=== PATIENT | male | born 1990 | race Caucasian/White ===

== ENCOUNTER 2017-04-20 09:57 | Emergency (ER) | payer OTHER ==
[2017-04-20 10:02] VITALS: BP 133/71; PULSE 77; TEMP 98.4; BMI 30.4
[2017-04-20] MEDS ORDERED: BACITRACIN 15 GM TUBE TOPICAL OINTMENT ONE (10:26)
--- NOTE | 2017-04-20 10:35 | PDOC ---
History of Present Illness - General Chief Complaint: Rash Stated Complaint: HEADACHES Time Seen by Provider: 04/20/17 10:12 History Source: Patient Exam Limitations: No Limitations - History of Present Illness Initial Comments: 04/20/17 10:29 27 year old male with history of HSV presents to the ED with vesicular rash to his left suprapubic area for the past 5 days. Patient states initially was treating it with homeopathic remedies with no improvement. Patient states has had episodes occurring every 2 years with his first episode approximately 10 years ago. Patient states since area do not improve and still has vesicles to the center he decided come to the ER. Patient denies fever, chills, penile or testicular involvement, enlarged lymph nodes. Past History - Travel Traveled outside of the country in the last 30 days: No - Past Medical History Allergies/Adverse Reactions: Allergies Allergy/AdvReac Type Severity Reaction Status Date / Time No Known Allergies Allergy Verified 04/20/17 10:02 Home Medications: Ambulatory Orders Acyclovir [Zovirax -] 400 mg PO TID #21 tablet 07/03/14 Bacitracin - [Bacitracin Topical Ointment -] 1 applic TP TID 07/03/14 Cefadroxil Hydrate [Cefadroxil] 500 mg PO DAILY 07/03/14 Sulfamethoxazole/Trimethoprim [Bactrim Ds -] 1 tab PO BID #13 tablet 07/03/14 Valacyclovir HCl [Valtrex] 1,000 mg PO DAILY #5 tablet 04/20/17 COPD: No Other medical history: shingles - Suicide/Smoking/Psychosocial Hx Smoking History: Never smoked Hx Alcohol Use: Yes Substance Use Type: Alcohol Patient Lives Alone: No Lives with/in: parents Review of Systems - Review of Systems Able to Perform ROS?: Yes Constitutional: No: Symptoms Reported Integumentary: Yes: Rash *Physical Exam - Vital Signs Last Vital Signs Temp Pulse Resp BP Pulse Ox 98.4 F 77 18 133/71 99 04/20/17 09:59 04/20/17 09:59 04/20/17 09:59 04/20/17 09:59 04/20/17 09:59 - Physical Exam General Appearance: Yes: Nourished, Appropriately Dressed. No: Apparent Distress Neck: negative: Lymphadenopathy (R), Lymphadenopathy (L) Male Genitalia: positive: normal genitalia. negative: discharge, testicular tenderness Lymphatic: negative: Adenopathy Integumentary: positive: Rash (noted crusted patch to left suprapubic region with vesicles to Center) Neurologic: positive: Motor Strength 5/5 (ambulatory) Medical Decision Making - Medical Decision Making 04/20/17 10:35 Patient with recurrent herpes simplex virus to the left suprapubic area explained to patient that he should not be working out in the gym and needs to use a nonstick dressing and wear cotton underpinnings. Although symptoms began approximately one week ago patient still has newly erupting vesicles to Center and will be treated with Valtrex. Patient also be recommended to follow-up with his PCP and ID as requested *DC/Admit/Observation/Transfer Diagnosis at time of Disposition: Recurrent herpes simplex - Discharge Dispostion Disposition: HOME Condition at time of disposition: Good - Prescriptions Prescriptions: Valacyclovir HCl [Valtrex] 1,000 mg PO DAILY #5 tablet - Referrals Referrals: STAFF,NOT ON [Primary Care Provider] - Alyson Caldera MD [Staff Physician] - - Patient Instructions Printed Discharge Instructions: DI for Genital Herpes Additional Instructions: At this time I recommend keeping area clean and dry and avoiding working out to promote healing. I also recommend taking the medication as prescribed until completed. I have enclosed contact information for infectious disease specialist - Post Discharge Activity
== END 2017-04-20 10:54 | disposition home or self-care (01) ==
LOC: JERFT 09:57
DX: B00.9 Herpesviral infection, unspecified (principal)
CPT/HCPCS: 99281-25

== ENCOUNTER 2017-10-12 10:13 | Emergency (ER) | payer OTHER ==
[2017-10-12 10:17] VITALS: BP 131/85; PULSE 62; TEMP 98; BMI 29.6
--- NOTE | 2017-10-12 11:28 | PDOC ---
History of Present Illness - General Chief Complaint: Rash Stated Complaint: ITCHY - History of Present Illness Initial Comments: 27-year-old male without comorbidities and past medical history significant for herpes outbreak presents for evaluation of a tender nodule about his mons pubis for 2 days. After shaving he noticed it. 10/12/17 11:23 Past History - Past Medical History Allergies/Adverse Reactions: Allergies Allergy/AdvReac Type Severity Reaction Status Date / Time No Known Allergies Allergy Verified 10/12/17 10:13 Home Medications: Ambulatory Orders Valacyclovir HCl [Valtrex] 1,000 mg PO TID #21 tablet 10/12/17 COPD: No DVT: No - Suicide/Smoking/Psychosocial Hx Smoking History: Never smoked Information on smoking cessation initiated: No Hx Alcohol Use: Yes Drug/Substance Use Hx: No Substance Use Type: Alcohol Review of Systems - Review of Systems Integumentary: Yes: See HPI, Lesions All Other Systems: Reviewed and Negative *Physical Exam - Vital Signs Last Vital Signs Temp Pulse Resp BP Pulse Ox 98.0 F 62 18 131/85 100 10/12/17 10:15 10/12/17 10:15 10/12/17 10:15 10/12/17 10:15 10/12/17 10:15 - Physical Exam Comments: There is a mildly erythematous nonfluctuant papule at the proximal aspects of the mons pubis, or no other lesions noted 10/12/17 11:24 Medical Decision Making - Medical Decision Making Patient states he feels like this may be the start of his outbreak he is requesting Valtrex. I feel this is folliculitis. I will give him a prescription for Valtrex for coverage 10/12/17 11:25 *DC/Admit/Observation/Transfer Diagnosis at time of Disposition: Folliculitis - Discharge Dispostion Disposition: HOME Condition at time of disposition: Stable Decision to Admit order: No - Referrals Referrals: Shekhar Mclean [Non Staff, Medical] - - Patient Instructions Printed Discharge Instructions: Genital Herpes Additional Instructions: Take the medication if you feel you're getting an outbreak follow-up with the primary care provider in the next 1-2 days for further evaluation and treatment options. Return to the emergency room should her symptoms worsen or go unresolved. - Post Discharge Activity
== END 2017-10-12 11:31 | disposition home or self-care (01) ==
LOC: JERFT 10:13
DX: L73.8 Other specified follicular disorders (principal); B00.89 Other herpesviral infection
CPT/HCPCS: 99281-25

== ENCOUNTER 2017-11-21 10:47 | Emergency (ER) | payer OTHER ==
[2017-11-21 10:51] VITALS: BP 118/80; PULSE 70; TEMP 98.5; BMI 31.9
--- NOTE | 2017-11-21 11:26 | PDOC ---
History of Present Illness - General Chief Complaint: Rash Stated Complaint: CHECK UP Time Seen by Provider: 11/21/17 11:16 History Source: Patient Exam Limitations: No Limitations - History of Present Illness Initial Comments: 11/21/17 11:27 27 yr male with rash to lower abdomen, states he has had herpes simplex outbreak for 10 yrs, states a lot of stress recently and now has rash. no other medical history no allergies, no meds. no fever. Past History - Past Medical History Allergies/Adverse Reactions: Allergies Allergy/AdvReac Type Severity Reaction Status Date / Time No Known Allergies Allergy Verified 11/21/17 10:51 Home Medications: Ambulatory Orders Valacyclovir HCl [Valtrex -] 500 mg PO BID #6 tablet 11/21/17 Valacyclovir HCl [Valtrex] 1,000 mg PO TID #21 tablet 11/21/17 COPD: No DVT: No - Suicide/Smoking/Psychosocial Hx Smoking History: Never smoked Hx Alcohol Use: Yes Drug/Substance Use Hx: No Substance Use Type: Alcohol Review of Systems - Review of Systems Able to Perform ROS?: Yes Is the patient limited Hebrew proficient: No Integumentary: Yes: Symptoms Reported *Physical Exam - Vital Signs Last Vital Signs Temp Pulse Resp BP Pulse Ox 98.5 F 70 18 118/80 99 11/21/17 10:49 11/21/17 10:49 11/21/17 10:49 11/21/17 10:49 11/21/17 10:49 - Physical Exam General Appearance: Yes: Nourished, Appropriately Dressed Integumentary: positive: Rash (vesicular red 3cm area to the lower left abdomen , herpetic lesion ) Neurologic: positive: Fully Oriented, Alert, Normal Mood/Affect, Normal Response , Motor Strength 5/5 Medical Decision Making - Medical Decision Making 11/21/17 11:28 cc: rash , burning sensation to the lower abdomen no drainage non tender abdomen will prescribe valrex pt understands strict follow up with derm if worse *DC/Admit/Observation/Transfer Diagnosis at time of Disposition: Recurrent herpes simplex - Discharge Dispostion Disposition: HOME Condition at time of disposition: Good - Prescriptions Prescriptions: Valacyclovir HCl [Valtrex] 1,000 mg PO TID #21 tablet Valacyclovir HCl [Valtrex -] 500 mg PO BID #6 tablet - Referrals - Patient Instructions Additional Instructions: follow with a electronic warfare operator if any worsening symptoms take the valtrex as prescribed for 3 days any worsening symptoms return to the ER - Post Discharge Activity
== END 2017-11-21 11:37 | disposition home or self-care (01) ==
LOC: JERFT 10:47
DX: B00.9 Herpesviral infection, unspecified (principal)
CPT/HCPCS: 99281-25

== ENCOUNTER 2018-04-18 12:58 | Emergency (ER) | payer OTHER ==
[2018-04-18 13:11] VITALS: BP 127/54; PULSE 77; TEMP 99.3; BMI 30.4
--- NOTE | 2018-04-18 13:40 | PDOC ---
History of Present Illness - General Chief Complaint: Rash Stated Complaint: Rash Time Seen by Provider: 04/18/18 13:09 History Source: Patient Exam Limitations: Clinical Condition - History of Present Illness Initial Comments: 04/18/18 13:40 Patient with history of recurrent genital herpes present with complaint of herpes outbreak in the pubic area for 2 days. Patient reported rash consistent with his herpes outbreak and has run out of his meds. Patient denies any other symptoms Timing/Duration: other (2 days) Past History - Past Medical History Allergies/Adverse Reactions: Allergies Allergy/AdvReac Type Severity Reaction Status Date / Time No Known Allergies Allergy Verified 04/18/18 13:02 Home Medications: Ambulatory Orders Valacyclovir HCl [Valtrex -] 500 mg PO BID 5 Days #30 tablet 04/18/18 COPD: No DVT: No - Suicide/Smoking/Psychosocial Hx Smoking History: Never smoked Hx Alcohol Use: No Drug/Substance Use Hx: No Substance Use Type: Alcohol Review of Systems - Review of Systems Able to Perform ROS?: Yes Is the patient limited Czech proficient: No Constitutional: No: Fever, Malaise HEENTM: No: Symptoms Reported Respiratory: No: Symptoms reported Cardiac (ROS): No: Symptoms Reported ABD/GI: No: Symptoms Reported Musculoskeletal: No: Symptoms Reported Integumentary: Yes: Rash (mons pubis vesicular rash) All Other Systems: Reviewed and Negative *Physical Exam - Vital Signs Last Vital Signs Temp Pulse Resp BP Pulse Ox 99.3 F 77 16 127/54 L 99 04/18/18 13:02 04/18/18 13:02 04/18/18 13:02 04/18/18 13:02 04/18/18 13:02 - Physical Exam Comments: 04/18/18 13:42 GENERAL: Well developed, well nourished. Awake and alert. No acute distress. CARDIOVASCULAR: Regular rate and rhythm. No murmurs, rubs, or gallops. Distal pulses are 2+ and symmetric. PULMONARY: No evidence of respiratory distress. Lungs clear to auscultation bilaterally. No wheezing, rales or rhonchi. ABDOMINAL: Soft. Non-tender. Non-distended. No rebound or guarding. No organomegaly. Normoactive bowel sounds. SKIN: localized multiple vesicular rash mons pubis without excoriations . NEUROLOGICAL: Alert, awake, appropriate. Gait is normal without ataxia. PSYCHIATRIC: Cooperative. Good eye contact. Appropriate mood General Appearance: Yes: Nourished, Appropriately Dressed. No: Apparent Distress Moderate Sedation - Procedure Monitoring Vital Signs: Procedure Monitoring Vital Signs Temperature 99.3 F 04/18/18 13:02 Pulse Rate 77 04/18/18 13:02 Respiratory Rate 16 04/18/18 13:02 Blood Pressure 127/54 L 04/18/18 13:02 O2 Sat by Pulse Oximetry (%) 99 04/18/18 13:02 Medical Decision Making - Medical Decision Making 04/18/18 13:43 Patient with history of recurrent genital herpes present with complaint of herpes outbreak requesting treatment. Exam significant for multiple vesicular lesion over mons pubis and as per patient lesions consistent with previous outbreaks. Patient is stable for discharge on Valtrex and dermatology follow-up. *DC/Admit/Observation/Transfer Diagnosis at time of Disposition: Recurrent herpes simplex - Discharge Dispostion Disposition: HOME Condition at time of disposition: Stable Decision to Admit order: No - Prescriptions Prescriptions: Valacyclovir HCl [Valtrex -] 500 mg PO BID 5 Days #30 tablet - Referrals Referrals: Gwyn Vargas MD [Non Staff, Medical] - - Patient Instructions Printed Discharge Instructions: The Facts About Genital Herpes, Genital Herpes Additional Instructions: Take medication as prescribed. Follow-up referred to dermatology if symptoms persist for more than 4 days. - Post Discharge Activity
== END 2018-04-18 13:40 | disposition home or self-care (01) ==
LOC: JERFT 12:58 → JER 12:58 → JERFT 13:40
DX: A60.00 Herpesviral infection of urogenital system, unspecified (principal)
CPT/HCPCS: 99281-25

== ENCOUNTER 2019-01-16 10:27 | Emergency (ER) | payer OTHER ==
[2019-01-16 10:43] VITALS: BP 122/71; PULSE 66; TEMP 98.2; BMI 30.4
--- NOTE | 2019-01-16 11:39 | PDOC ---
History of Present Illness - General Chief Complaint: Cold Symptoms Stated Complaint: PRESCRIPTION Time Seen by Provider: 01/16/19 10:56 History Source: Patient Exam Limitations: No Limitations Past History - Travel Traveled outside of the country in the last 30 days: No Close contact w/someone who was outside of country & ill: No - Past Medical History Allergies/Adverse Reactions: Allergies Allergy/AdvReac Type Severity Reaction Status Date / Time No Known Allergies Allergy Verified 01/16/19 10:43 Home Medications: Ambulatory Orders Valacyclovir HCl [Valtrex -] 500 mg PO BID #6 tablet 01/16/19 COPD: No DVT: No - Psycho Social/Smoking Cessation Hx Smoking History: Never smoked Hx Alcohol Use: Yes Drug/Substance Use Hx: No Substance Use Type: Alcohol Review of Systems - Review of Systems Able to Perform ROS?: Yes Comments:: 01/16/19 11:31 CONSTITUTIONAL: Absent: fever, chills, diaphoresis, generalized weakness, malaise, loss of appetite HEENT: Absent: rhinorrhea, nasal congestion, throat pain, throat swelling, difficulty swallowing, mouth swelling, ear pain, eye pain, visual Changes CARDIOVASCULAR: Absent: chest pain, loss of consciousness, palpitations, irregular heart rate, peripheral edema RESPIRATORY: Absent: cough, shortness of breath, dyspnea with exertion, orthopnea, wheezing, stridor, hemoptysis GASTROINTESTINAL: Absent: abdominal pain, abdominal distension, nausea, vomiting, diarrhea, constipation, melena, hematochezia GENITOURINARY: Absent: dysuria, frequency, urgency, hesitancy, hematuria, flank pain, genital pain MUSCULOSKELETAL: Absent: myalgia, arthralgia, joint swelling SKIN: Present: rash Absent: itching, pallor HEMATOLOGIC/IMMUNOLOGIC: Absent: easy bleeding, easy bruising, lymphadenopathy, frequent infections ENDOCRINE: Absent: unexplained weight gain, unexplained weight loss, heat intolerance, cold intolerance NEUROLOGIC: Absent: headache, focal weakness or paresthesias, dizziness, unsteady gait, seizure, mental status changes, bladder or bowel incontinence PSYCHIATRIC: Absent: anxiety, depression, suicidal or homicidal ideation, hallucinations. Is the patient limited Pashto proficient: No *Physical Exam - Vital Signs Last Vital Signs Temp Pulse Resp BP Pulse Ox 98.2 F 66 18 122/71 98 01/16/19 10:40 01/16/19 10:40 01/16/19 10:40 01/16/19 10:40 01/16/19 10:40 - Physical Exam Comments: 01/16/19 11:34 GENERAL: The patient is awake, alert, and fully oriented, in no acute distress. HEAD: Normal with no signs of trauma. EYES: Pupils equal, round and reactive to light, extraocular movements intact, sclera anicteric, conjunctiva clear. EXTREMITIES: Normal range of motion, no edema. NEUROLOGICAL: Normal speech, normal gait. PSYCH: Normal mood, normal affect. SKIN: Vesicular rash to the mons pubis. Warm, Dry, normal turgor, no rashes or lesions noted. 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 He states it started last night. He endorses that the rash is tingling and similar to the rash he had a year ago. Denies fevers, testicular pain, dysuria A/P: herpes outbreak On exam vesicular rash to the mons pubis Will treat with valtrex DC home with PCP follow up I discussed the physical exam findings, ancillary test results and final diagnoses with the patient. I answered all of the patient's questions. The patient was satisfied with the care received and felt comfortable with the discharge plan and treatment plan. The Patient agrees to follow up with the primary care physician/specialist within 24-72 hours. Return precautions were given. Discharge - Discharge Information Problems reviewed: Yes Clinical Impression/Diagnosis: Recurrent herpes simplex Condition: Stable Disposition: HOME - Admission No - Follow up/Referral - Patient Discharge Instructions Patient Printed Discharge Instructions: DI for Genital Herpes Additional Instructions: You were evaluated for your rash It looks like your herpes rash has come back Take the Valtrex as directed Follow up with your primary care doctor Return to the ER for any new or worsening symptoms - Post Discharge Activity
== END 2019-01-16 11:59 | disposition home or self-care (01) ==
LOC: JERFT 10:27
DX: B00.9 Herpesviral infection, unspecified (principal); A60.02 Herpesviral infection of other male genital organs
CPT/HCPCS: 99281-25

== ENCOUNTER 2019-02-24 13:45 | Emergency (ER) | payer OTHER ==
[2019-02-24 13:50] VITALS: BP 127/81; PULSE 67; TEMP 98; BMI 30.4
--- NOTE | 2019-02-24 13:58 | PDOC ---
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 Patient reports he knows he has had this problem since he was 17 and was told to "get seen within 5 days so I can get the Valtrex." No recent travel or sick contacts. PAST MEDICAL HISTORY: Denies past medical history FAMILY HISTORY: Denies SOCIAL HISTORY: Denies tobacco, alcohol, illicit drug use. SURGICAL HISTORY: Denies ALLERGIES: No known drug allergies REVIEW OF SYSTEMS General/Constitutional: Denies fever or chills. Denies weakness, weight change. HEENT: Denies change in vision. Denies ear pain or discharge. Denies sore throat. Cardiovascular: Denies chest pain or shortness of breath. Respiratory: Denies cough, wheezing, or hemoptysis. Gastrointestinal: Denies nausea, vomiting, diarrhea or constipation. Denies rectal bleeding. Genitourinary: Denies dysuria, frequency, or change in urination. Musculoskeletal: Denies joint or muscle swelling or pain. Denies neck or back pain. Skin : "I'm having an HSV outbreak." Neurologic: Denies headache, vertigo, loss of consciousness, or loss of sensation. Psychiatric: Denies depression or anxiety. PHYSICAL EXAM General Appearance: Well-appearing, appropriately dressed. No apparent distress , no intoxication. HEENT: EOMI, PERRLA, normal ENT inspection, normal voice, TMs normal, pharynx normal. No conjunctival pallor. No photophobia, scleral icterus. Neck: Supple. Trachea midline. No tenderness, rigidity, carotid bruit, stridor , lymphadenopathy, or thyromegaly. Respiratory/Chest: Lungs CTAB. No shortness of breath, chest tenderness, respiratory distress, accessory muscle use. No crackles, rales, rhonchi, stridor , wheezing, dullness Cardiovascular: RRR. S1, S2. No JVD, murmur, bradycardia, tachycardia. Vascular Pulses: Dorsalis-Pedis (R): 2+, Dorsalis-Pedis (L): 2+ Gastrointestinal/Abdominal: Normal bowel sounds. Abdomen soft, non-distended. No tenderness or rebound tenderness. No organomegaly, pulsatile mass, guarding , hernia, hepatomegaly, splenomegaly. Lymphatic: No adenopathy, tenderness. Musculoskeletal/Extremities: Cluster of 3 flesh-colored papules to suprapubic region. Normal inspection. FROM of all extremities, normal capillary refill. Pelvis Stable. No CVA tenderness. No tenderness to extremities, pedal edema, swelling, erythema or deformity. Integumentary: Appropriate color, dry, warm. No cyanosis, erythema, jaundice or rash Neurologic: aquatic life laborer II-XII intact. Fully oriented, alert. Appropriate mood/affect. Motor strength 5/5. No appreciable EOM palsy, facial droop or sensory deficit. 02/24/19 14:25 Past History - Past Medical History Allergies/Adverse Reactions: Allergies Allergy/AdvReac Type Severity Reaction Status Date / Time No Known Allergies Allergy Verified 02/24/19 13:50 Home Medications: Ambulatory Orders Valacyclovir HCl [Valtrex -] 500 mg PO BID #6 tablet 01/16/19 Valacyclovir HCl [Valtrex] 1,000 mg PO DAILY #7 tablet 02/24/19 COPD: No DVT: No - Psycho Social/Smoking Cessation Hx Smoking History: Never smoked Hx Alcohol Use: Yes Drug/Substance Use Hx: No Substance Use Type: Alcohol *Physical Exam - Vital Signs Last Vital Signs Temp Pulse Resp BP Pulse Ox 98 F 67 18 127/81 98 02/24/19 13:47 02/24/19 13:47 02/24/19 13:47 02/24/19 13:47 02/24/19 13:47 Medical Decision Making - Medical Decision Making 02/24/19 14:27 28 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 Clinical presentation consistent with HSV outbreak. -Valtrex Discharge - Discharge Information Problems reviewed: Yes Clinical Impression/Diagnosis: HSV (herpes simplex virus) infection Condition: Stable Disposition: HOME - Additional Discharge Information Prescriptions: Valacyclovir HCl [Valtrex] 1,000 mg PO DAILY #7 tablet - Follow up/Referral - Patient Discharge Instructions Patient Printed Discharge Instructions: DI for Genital Herpes - Post Discharge Activity
== END 2019-02-24 14:30 | disposition home or self-care (01) ==
LOC: JERFT 13:45
DX: B00.89 Other herpesviral infection (principal)
CPT/HCPCS: 99281-25

== ENCOUNTER 2020-07-19 20:56 | Emergency (ER) | payer SELFPAY ==
[2020-07-19 21:09] VITALS: BP 121/80; PULSE 65; TEMP 98; BMI 30.4
== END 2020-07-19 21:29 | disposition home or self-care (01) ==
LOC: JER 20:56 → JERFT 20:56
DX: B00.1 Herpesviral vesicular dermatitis (principal)
CPT/HCPCS: 99283-25

== ENCOUNTER 2021-05-04 05:51 | Emergency (ER) | payer OTHER ==
[2021-05-04 06:13] VITALS: BP 132/80; PULSE 78; BMI 26.6
== END 2021-05-04 08:22 | disposition home or self-care (01) ==
LOC: JER 05:51
DX: B00.82 Herpes simplex myelitis (principal); R19.7 Diarrhea, unspecified; R21 Rash and other nonspecific skin eruption
CPT/HCPCS: 99281-25

== ENCOUNTER 2021-10-27 03:07 | Emergency (ER) | payer OTHER ==
[2021-10-27 03:53] VITALS: BP 117/72; PULSE 96; TEMP 98.4; BMI 29.6
[2021-10-27] MEDS ORDERED: ACETAMINOPHEN 500 MG TABLET (FP) PO ONE (06:05)
[2021-10-27] MEDS ORDERED: ACETAMINOPHEN 325 MG TABLET (FP) ONE (06:13)
== END 2021-10-27 06:49 | disposition home or self-care (01) ==
LOC: JER 03:07
DX: S01.81XA Laceration without foreign body of other part of head, initial encounter (principal); S09.90XA Unspecified injury of head, initial encounter; W25.XXXA Contact with sharp glass, initial encounter
CPT/HCPCS: 70450-TC; 99284-25

== ENCOUNTER 2021-11-01 12:01 | Emergency (ER) | payer OTHER ==
[2021-11-01 13:03] VITALS: BP 115/75; TEMP 97.6
[2021-11-01 13:06] VITALS: PULSE 52; BMI 29.6
== END 2021-11-01 13:33 | disposition home or self-care (01) ==
LOC: JERFT 12:01
DX: Z48.02 Encounter for removal of sutures (principal)
CPT/HCPCS: 99281-25

== ENCOUNTER 2021-12-28 14:11 | Emergency (ER) | payer SELFPAY ==
[2021-12-28 14:22] VITALS: BP 111/64; PULSE 66; RESP 20; TEMP 98.2; BMI 28.4
== END 2021-12-28 16:00 | disposition home or self-care (01) ==
LOC: JERFT 14:11
PROC: 0H9AXZZ Drainage of Inguinal Skin, External Approach (ICD-10-PCS; principal; 2021-12-28)
DX: L72.3 Sebaceous cyst (principal)
CPT/HCPCS: 99282-25

== ENCOUNTER 2022-03-19 23:26 | Emergency (ER) | payer OTHER ==
[2022-03-19 23:41] VITALS: BP 123/88; PULSE 60; RESP 18; TEMP 98.4; BMI 28.8
[2022-03-20] MEDS ORDERED: KETOROLAC TROMETHAMINE 30 MG/1 ML VIAL IM ONE (01:08)
[2022-03-20] MEDS ORDERED: LIDOCAINE 5% TOPICAL PATCH TP ONE (01:09)
[2022-03-20] MEDS ORDERED: METHOCARBAMOL 500 MG TABLET PO ONE (01:09)
[2022-03-20] MEDS ORDERED: LIDOCAINE 5% TOPICAL PATCH ONE (01:18)
[2022-03-20] MEDS ORDERED: KETOROLAC TROMETHAMINE 30 MG/1 ML VIAL ONE (01:18)
[2022-03-20] MEDS ORDERED: METHOCARBAMOL 500 MG TABLET ONE (01:18)
[2022-03-20] MEDS ORDERED: LIDOCAINE PATCH REMOVAL MC ONE (13:00)
== END 2022-03-20 02:22 | disposition home or self-care (01) ==
LOC: JER 23:26
PROC: 3E0233Z Introduction of Anti-inflammatory into Muscle, Percutaneous Approach (ICD-10-PCS; principal; 2022-03-19)
DX: M54.2 Cervicalgia (principal); V89.0XXA Person injured in unspecified motor-vehicle accident, nontraffic, initial encounter
CPT/HCPCS: 99283-25; 99284-25

== ENCOUNTER 2023-06-07 10:39 | Emergency (ER) | payer OTHER ==
[2023-06-07 10:45] VITALS: TEMP 97.4; BMI 28.8
[2023-06-07 11:37] LABS: PH,URINE 6.5 (5.0-8.0); URINE APPEARANCE CLEAR; URINE BILIRUBIN NEGATIVE (NEGATIVE); URINE COLOR YELLOW; URINE GLUCOSE (UA) NEGATIVE (NEGATIVE); URINE KETONE NEGATIVE (NEGATIVE); URINE LEUK ESTERASE NEGATIVE (NEGATIVE); URINE NITRITE NEGATIVE (NEGATIVE); URINE PROTEIN NEGATIVE (NEGATIVE); URINE UROBILINOGEN 0.2 mg/dL (0.2-1.0)
[2023-06-07 12:10] VITALS: BP 120/75; PULSE 60; RESP 14
== END 2023-06-07 13:15 | disposition home or self-care (01) ==
LOC: JERFT 10:39
DX: R21 Rash and other nonspecific skin eruption (principal); B00.9 Herpesviral infection, unspecified
CPT/HCPCS: 36415; 81003; 87086; 87491; 87591; 87661; 99283-25

== ENCOUNTER 2023-07-13 16:33 | Observation (INO) | payer OTHER ==
[2023-07-13 18:51] LABS: BASO % 0.6 % (0-2.0); EOS % 2.3 % (0-4.5); HEMATOCRIT 44.1 % (35.4-49); HEMOGLOBIN 15.1 GM/dL (11.7-16.9); LYMPH % 45.4 % (8-40); MCH 31.6 pg (25.7-33.7); MCHC 34.3 g/dl (32.0-35.9); MEAN PLT VOLUME 6.8 fl (7.5-11.1); MONO % 7.5 % (3.8-10.2); NEUT % 44.2 % (42.8-82.8); PLATELET COUNT 259 10^3/uL (134-434); RBC 4.79 M/mm3 (4.00-5.60); RDW 13.6 % (11.9-15.9); WHITE BLOOD COUNT 6.4 K/mm3 (4.0-10.0)
[2023-07-13 19:12] LABS: POTASSIUM 4.2 mmol/L (3.5-5.1)
[2023-07-13 19:14] LABS: CALCIUM 8.8 mg/dL (8.5-10.1)
[2023-07-13 19:15] LABS: ALBUMIN 3.8 g/dl (3.4-5.0); BLOOD UREA NITROGEN 12.1 mg/dL (7-18)
[2023-07-13 19:18] LABS: CREATININE 1.1 mg/dL (0.55-1.3)
[2023-07-13 19:19] LABS: BILIRUBIN,TOTAL 0.4 mg/dL (0.2-1); TOT PROT 6.6 g/dl (6.4-8.2)
[2023-07-13] MEDS: SODIUM PHOSPHATE/NA BIPHOS 133 ML ENEMA PR ONE (19:38)
[2023-07-14] MEDS ORDERED: LACTULOSE 20 GM/30 ML UDC (FOR ORAL USE ONLY) PO PRN (04:53)
[2023-07-14] MEDS: LACTULOSE 20 GM/30 ML UDC (FOR ORAL USE ONLY) PO SCH (06:03)
[2023-07-14 07:56] VITALS: RESP 18
[2023-07-14 08:04] VITALS: BMI 29.6
[2023-07-14 08:43] LABS: BASO % 0.8 % (0-2.0); EOS % 3.8 % (0-4.5); HEMATOCRIT 43.9 % (35.4-49); HEMOGLOBIN 14.6 GM/dL (11.7-16.9); LYMPH % 57.2 % (8-40); MCH 30.6 pg (25.7-33.7); MCHC 33.1 g/dl (32.0-35.9); MEAN CELL VOLUME 92.4 fl (80-96); MONO % 8.6 % (3.8-10.2); NEUT % 29.6 % (42.8-82.8); PLATELET COUNT 244 10^3/uL (134-434); RBC 4.75 M/mm3 (4.00-5.60); RDW 13.3 % (11.9-15.9)
[2023-07-14 09:02] LABS: POTASSIUM 4.2 mmol/L (3.5-5.1)
[2023-07-14 09:07] LABS: BLOOD UREA NITROGEN 13.4 mg/dL (7-18)
[2023-07-14 09:10] LABS: ALBUMIN 3.5 g/dl (3.4-5.0)
[2023-07-14 09:12] LABS: PHOSPHOROUS 4.9 mg/dL (2.5-4.9)
[2023-07-14 09:13] LABS: CALCIUM 9.1 mg/dL (8.5-10.1)
[2023-07-14 09:14] LABS: MAGNESIUM 2.1 mg/dL (1.8-2.4); TOT PROT 6.4 g/dl (6.4-8.2)
[2023-07-14 09:16] LABS: CREATININE 1.1 mg/dL (0.55-1.3)
[2023-07-14 09:18] LABS: BILIRUBIN,TOTAL 0.4 mg/dL (0.2-1)
[2023-07-14] MEDS: DEXTROSE 5%-LACTATED RINGERS 1,000 ML IV SCH (10:26)
[2023-07-14] MEDS: SIMETHICONE 80 MG TAB.CHEW (FP) PO SCH (10:29)
[2023-07-14] MEDS: ENOXAPARIN NA (PORCINE) 40 MG/0.4 ML DISP.SYRIN SQ SCH (10:29)
[2023-07-14] MEDS: SENNOSIDES/DOCUSATE COMBO (SENNA PLUS) TABLET (UD) PO SCH (10:29)
[2023-07-14] MEDS: SODIUM PHOSPHATE/NA BIPHOS 133 ML ENEMA RC ONE (10:33)
[2023-07-14 11:22] LABS: PH,URINE 5.5 (5.0-8.0); URINE APPEARANCE CLEAR; URINE BILIRUBIN NEGATIVE (NEGATIVE); URINE COLOR YELLOW; URINE GLUCOSE (UA) NEGATIVE (NEGATIVE); URINE KETONE NEGATIVE (NEGATIVE); URINE LEUK ESTERASE NEGATIVE (NEGATIVE); URINE NITRITE NEGATIVE (NEGATIVE); URINE PROTEIN NEGATIVE (NEGATIVE); URINE UROBILINOGEN 0.2 mg/dL (0.2-1.0)
[2023-07-14 11:29] LABS: COCAINE, UR NEGATIVE (NEGATIVE); METHADONE, UR NEGATIVE (NEGATIVE); OPIATES, URI NEGATIVE (NEGATIVE); PHENCYCLIDINE,URINE NEGATIVE (NEGATIVE); URINE BARBITURATES NEGATIVE (NEGATIVE); URINE BENZODIAZEPINES NEGATIVE (NEGATIVE)
[2023-07-14 11:30] LABS: URINE AMPHETAMINES NEGATIVE (NEGATIVE)
[2023-07-14] MEDS ORDERED: RIFAXIMIN 550 MG TABLET PO SCH (14:00)
[2023-07-14] MEDS: SODIUM PHOSPHATE/NA BIPHOS 133 ML ENEMA RC SCH (14:18)
[2023-07-14 15:07] VITALS: BP 118/46; PULSE 48; TEMP 97.9
== END 2023-07-14 16:15 | disposition home or self-care (01) ==
LOC: JER 16:33 → JERBED 21:42 → J6S 07-14 03:00
PROVIDERS: ADMIT Internal Medicine; ATTEND Internal Medicine
PROC: 3E0337Z Introduction of Electrolytic and Water Balance Substance into Peripheral Vein, Percutaneous Approach (ICD-10-PCS; principal; 2023-07-13)
PROC: 3E023GC Introduction of Other Therapeutic Substance into Muscle, Percutaneous Approach (ICD-10-PCS; 2023-07-13)
DX: K59.09 Other constipation (principal); K52.9 Noninfective gastroenteritis and colitis, unspecified; F41.8 Other specified anxiety disorders; Z87.891 Personal history of nicotine dependence; R10.9 Unspecified abdominal pain
CPT/HCPCS: 36415; 74177-TC; 80053; 80307; 81003; 83690; 83735; 84100; 84484; 85025; 93005; 93010; 96360; 96372; 99285-25; G0378

== ENCOUNTER 2023-08-15 13:10 | Emergency (ER) | payer OTHER ==
[2023-08-15 13:24] VITALS: BP 110/54; PULSE 63; RESP 18; TEMP 98; BMI 28.1
== END 2023-08-15 14:38 | disposition home or self-care (01) ==
LOC: JER 13:10 → JERFT 13:10
DX: R21 Rash and other nonspecific skin eruption (principal); A60.00 Herpesviral infection of urogenital system, unspecified; L56.8 Other specified acute skin changes due to ultraviolet radiation
CPT/HCPCS: 99283-25

== ENCOUNTER 2023-11-22 20:13 | Emergency (ER) | payer SELFPAY ==
[2023-11-22 20:23] VITALS: BP 109/56; PULSE 60; RESP 16; TEMP 99; BMI 28.1
[2023-11-22] MEDS ORDERED: LIDOCAINE HCL 1%, 10 MG/ML (20ML VIAL) ONE (22:15)
[2023-11-22] MEDS: LIDOCAINE HCL 1%, 10 MG/ML (50 mL VIAL) SQ ONE (22:17)
[2023-11-22] MEDS ORDERED: BACITRACIN ZINC 15 GM TUBE TOPICAL OINTMENT ONE (22:32)
[2023-11-22] MEDS: BACITRACIN ZINC 15 GM TUBE TOPICAL OINTMENT TP ONE (22:32)
== END 2023-11-22 22:40 | disposition home or self-care (01) ==
LOC: JERFT 20:13
PROC: 0V95XZZ Drainage of Scrotum, External Approach (ICD-10-PCS; principal; 2023-11-22)
DX: L72.3 Sebaceous cyst (principal)
CPT/HCPCS: 99283-25